=== PATIENT | male | born 2000 ===

== ENCOUNTER 2025-01-04 05:10 | Inpatient (IN) | payer MEDICAID, OTHER, SELFPAY ==
[2025-01-04 05:25] VITALS: BP 126/84; PULSE 99; RESP 15; TEMP 36.6; O2SAT 96
[2025-01-04 05:49] VITALS: BMI 43.7
--- NOTE | 2025-01-04 06:40 | PC.ADMIT ---
PT IS A 24 YEAR OLD, DANISH SPEAKING MALE ADMITTED TO [facility] AT APPROXIMATELY 0545 FROM [employer] [facility] FOR THE FEEBLE-MINDED ON A CONDITIONAL VOLUNTARY. PT WAS PLACED ON 15 MIN CHECKS. COOPERATIVE WITH SKIN/SAFETY CHECK WHICH WAS UNREMARKABLE. PT PRESENTED TO THE ED DUE TO INCREASED DELUSIONS. PTS SISTER REPORTS PT HAS BEEN OFF HIS MEDICATIONS FOR A FEW DAYS. PT REPORTS FEELING LIKE EVERYTHING IS A HUMAN . PT IS ABLE TO RECOGNIZE THAT THIS THOUGHT PROCESS IS DELUSIONAL BUT EXPRESSES NOT KNOWING HOW TO MAKE THESE FEELINGS SUBSIDE. HE REPORTS THAT HIS DELUSIONAL THINKING HAS INTERFERED WITH HIS LIFE CAUSING POOR APPETITE, POOR SLEEP, POOR ADLS, AND PARANOIA. PT REPORTS INTERMITTENT THOUGHTS OF SI BUT DOES NOT EXPRESS A PLAN OR INTENT. PT REPORTS MILD DEPRESSION AND MODERATE ANXIETY. PT REPORT HAVING [facility] SERVICES. PT DID NOT SIGN ANY RELEASES OF INFORMATION AT THIS TIME. PT HAS A POSITIVE FAMILY SUPPORT SYSTEM. HE REPORTS FEELING SAFE ON THE UNIT. NO ACUTE MEDICAL CONCERNS AT THIS TIME. PT NEEDS SAFETY TOOL COMPLETED.
[2025-01-04 07:55] VITALS: BP 120/76; PULSE 103; RESP 16; TEMP 36.1; O2SAT 98
--- NOTE | 2025-01-04 08:19 | HO.PM.IMCN ---
History of Present Illness Data of Consult Service Date: 01/04/25 Primary Care Provider: Unknown Physician HPI Reason for consult: Admission H&P Pt is a 24-year-old male with a PMH significant for?HTN, HLD, and mood disorder who is admitted to [facility] psychiatry unit for increasing paranoia, depression, and SI with plan to possibly jump in front of a train. Pt also reported having a difficult time eating because no matter what food he was ingesting he always felt like he was eating human flesh. Medical consult for admission H&P. Pt seen and examined on the unit. Pt reports follows regularly with a PCP, though has been inconsistent with his home medications. Denies any acute medical complaints at this time. No chest pain/pressure, palpitations. Denies shortness or breath or difficulty breathing. No fever, chills, nausea, vomiting, abdominal pain. Denies headache or acute vision loss. Labs from [facility] reviewed, significant for leukocytosis of 12.8 and increased anion gap of 17 otherwise unremarkable. Vitals on the unit show mild tachycardia of 103, otherwise stable and WNL. Review of Systems Review of Systems: Pt denies any acute medical complaints at this time. [facility] Social History Household Members: Family Housing: Unknown / Unable to assess Do you presently have visiting nurse or other home services: No Patient Tobacco Use Status: Never used Tobacco Smoked in Last 30 Days: No e-Cigarette/Vaping Use: Never Used Patient Interested in Nicotine Replacement: No Patient Given Instructions on How to Stop Smoking: No Second Hand Smoke Exposure: No Have you been hit, kicked, punched, or otherwise hurt by someone within the past year? If so, by whom?: No Do you feel safe in your current relationship?: No Current Relationship Is there a partner from a previous relationship who is making you feel unsafe now?: No Are you made to feel afraid or neglected: No Advance Directives: No Advance Directives Information Provided: Yes Do you have a plan to hurt others: No Plan Recently lost weight without trying: No Eating poorly because of decreased appetite: No Nutrition Risks: No Nutritional Risk Poor oral hygiene: No Meds Allergies Allergy/AdvReac Type Severity Reaction Status Date / Time No Known Allergies Allergy Verified 01/04/25 05:57 Active Medications: Current Medications Acetaminophen (Acetaminophen 325 Mg Tablet) 650 mg PO Q6H PRN PRN Reason: Headache/Pain, Scale 1-10 Al Hydroxide/Mg Hydroxide (Magnesium Hydrox/Alum Hydrox 30 Ml Oral.Susp) 30 ml PO Q6H PRN PRN Reason: Heartburn/Nausea Hydroxyzine HCl (Hydroxyzine Hcl 25 Mg Tablet) 25 mg PO Q6H PRN PRN Reason: mild anxiety Magnesium Hydroxide (Milk Of Magnesia 30 Ml Oral.Susp) 30 ml PO DAILY PRN PRN Reason: Constipation Nicotine Polacrilex (Nicotine Polacrilex 2 Mg Gum) 4 mg BUCCAL Q2H PRN PRN Reason: Nicotine Cravings Olanzapine (Olanzapine Odt 10 Mg Tab.Rapdis) 10 mg TRANSLINGU Q6H PRN PRN Reason: agitation Quetiapine Fumarate (Quetiapine Fumarate 100 Mg Tablet) 100 mg PO BEDTIME YOSHI Trazodone HCl (Trazodone Hcl 50 Mg Tablet) 50 mg PO BEDTIME MRX1 PRN PRN Reason: Insomnia Home Medications ?Medication ?Instructions ?Recorded ?Confirmed ?Last Taken ?Type benztropine 1 mg tablet 1 mg PO BID 01/04/25 01/04/25 01/03/25 19:37 History melatonin 3 mg tablet 3 mg PO BEDTIME PRN Sleep 01/04/25 01/04/25 Unknown History mirtazapine 7.5 mg tablet 7.5 mg PO BEDTIME 01/04/25 01/04/25 Unknown History paliperidone palmitate 234 mg/1.5 234 mg IM Q28D 01/04/25 01/04/25 12/15/24 History mL intramuscular syringe (Invega Sustenna) propranolol 20 mg tablet 20 mg PO TID 01/04/25 01/04/25 Unknown History quetiapine 100 mg tablet (Seroquel) 400 mg PO BEDTIME 01/04/25 01/04/25 Unknown History quetiapine 300 mg tablet (Seroquel) 300 mg PO BEDTIME 01/04/25 01/04/25 Unknown History quetiapine 50 mg tablet (Seroquel) 50 mg PO DAILY PRN Anxiety 01/04/25 01/04/25 Unknown History sertraline 100 mg tablet 100 mg PO DAILY 01/04/25 01/04/25 Unknown History simvastatin 20 mg tablet 20 mg PO BEDTIME 01/04/25 01/04/25 01/03/25 19:37 History Physical Exam Vital Signs and Narrative: Vital Signs: Last Vital Signs Temp 96.9 F 01/04/25 07:55 Pulse 103 H 01/04/25 07:55 Resp 16 01/04/25 07:55 BP 120/76 01/04/25 07:55 Pulse Ox 98 01/04/25 07:55 BMI result Body Mass Index 43.7 General: AOx3, no acute distress Resp: CTA bilaterally CVS: S1, S2, RRR GI: +BS, NT, no distention Skin: Warm, dry Neuro: Cranial nerves II-XII grossly intact bilaterally. Motor grossly intact bilaterally Extremities: No edema Psych: Appropriate affect Assessment and Plan (1) Medical clearance for psychiatric admission: Status: Acute Plan Pt is a 24-year-old male with a PMH significant for?HTN, HLD, and mood disorder who is admitted to [facility] psychiatry unit for increasing paranoia, depression, and SI with plan to possibly jump in front of a train. Pt also reported having a difficult time eating because no matter what food he was ingesting he always felt like he was eating human flesh. Medical consult for admission H&P. Mood disorder Plan as per Psychiatry HTN Well-controlled on current therapies Continue propranolol HLD Continue statin Pt otherwise has no acute medical complaints or chronic medical conditions. Will sign off for now. Thank you for allowing us to take care in the care of this pt. Will sign off for now. Please re-consult if any acute issue or need arises.
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
[2025-01-04] MEDS: Nicotine Polacrilex 2 MG GUM 4 MG BUCCAL ×2 (11:52→20:48)
[2025-01-04] MEDS: Sertraline HCL 25 MG TABLET 125 MG PO (11:53)
[2025-01-04 20:00] VITALS: BP 118/64; PULSE 120; TEMP 36.9; O2SAT 96
[2025-01-04] MEDS: QUEtiapine Fumarate 300 MG TABLET PO (20:48)
[2025-01-04] MEDS: QUEtiapine Fumarate 100 MG TABLET PO (20:48)
[2025-01-04] MEDS: Atorvastatin Calcium 10 MG TABLET PO (20:48)
[2025-01-04] MEDS: Benztropine Mesylate 1 MG TABLET PO (20:48)
[2025-01-05 08:51] LABS: Estimated Average Glucose 123 mg/dL; Hemoglobin A1C 160.8765 umol/L; Hemoglobin A1c % 5.9 % (<6.0); Total Hemoglobin (HGBA1C) 3883.0903 umol/L
[2025-01-05 09:07] LABS: Alanine Aminotransferase 47 U/L (0-40); Albumin Level 4.7 g/dL (3.5-5.0); Alkaline Phosphatase 99 U/L (39-117); Anion Gap 16 (12-20); Aspartate Amino Transferase 23 U/L (5-37); Bilirubin Total 0.4 mg/dL (0.0-1.0); Blood Urea Nitrogen 13 mg/dL (9-16); Carbon Dioxide 24 mmol/L (22-29); Chloride 103 mmol/L (96-108); Cholesterol 152 mg/dL (<200); Creatinine Clr Calc Pharmacy 163.9; Estimated Glomerular Filt Rate > 60; Glucose Random 109 mg/dL (60-115); HDL Cholesterol 37 mg/dL (>40); LDL Cholesterol Calculated 79 mg/dL (<100); Potassium 4.2 mmol/L (3.3-5.1); Sodium 139 mmol/L (135-145); Total Protein 7.6 g/dL (6.5-8.0); Triglycerides 181 mg/dL (<150)
[2025-01-05] MEDS: Benztropine Mesylate 1 MG TABLET PO ×2 (09:10→21:06)
[2025-01-05] MEDS: Sertraline HCL 50 MG TABLET 150 MG PO (09:10)
[2025-01-05] MEDS: Nicotine Polacrilex 2 MG GUM 4 MG BUCCAL ×4 (09:11→20:23)
[2025-01-05 09:29] LABS: Folate 11.3 ng/mL (> or = 4.0); Vitamin B12 418 pg/mL (200-900)
[2025-01-05] MEDS: hydrOXYzine HCL 25 MG TABLET PO (18:49)
[2025-01-05] MEDS: OLANZapine ODT 10 MG TAB.RAPDIS TRANSLINGU (18:49)
[2025-01-05 20:00] VITALS: BP 177/99; PULSE 128; RESP 16; TEMP 36.2; O2SAT 97
--- NOTE | 2025-01-05 20:29 | HO.PSYCHPN ---
Subjective Subjective Date of Service: 01/05/25 Reason For Visit: F22 Delusional Disorder Interim History: Met with patient; discussed with team reports mood is better and SI fully resolved; tolerating increased Zoloft. still has intrusive thought of eating humans and fear people after him for it, though can use reality testing to calm his anxieties over it. Agrees to remain on current med regimen for now. Mental Status Exam Mental Status Exam Narrative: Pt is alert and oriented; behavior is cooperative, friendly and calm, internally preoccupied but less so; patient is not in distress; dressed in casual attire, unkempt, obese; mood is described as good and affect congruent, more calm; eye contact appropriate; Speech is with some thought blocking; a little slowed but normal volume and prosody; some psychomotor retardation present; thought process is with some thought blocking and can be distracted, but otherwise organized and goal directed; Thought content is on tx, paranoid ideations; intrusive, unwanted thoughts; No SI; no HI. Currently Denies AVH however at times appears internally preoccupied. Patients insight and judgment impaired but improving. Diagnostics Vital Signs (24Hr): BMI result Body Mass Index 43.7 Labs 01/05/25 08:26 Labs: Laboratory Results - last 48 hr 01/05/25 08:26 Sodium 139 Potassium 4.2 Chloride 103 Carbon Dioxide 24 Anion Gap 16 BUN 13 Creatinine 0.88 Estim Creat Clear Calc 163.9 Estimated GFR > 60 Random Glucose 109 Estimat Average Glucose 123 Hemoglobin A1c % 5.9 Calcium 10.0 Total Bilirubin 0.4 AST 23 ALT 47 H Alkaline Phosphatase 99 Total Protein 7.6 Albumin 4.7 Triglycerides 181 H Cholesterol 152 LDL Cholesterol, Calc 79 HDL Cholesterol 37 L Vitamin B12 418 Folate 11.3 TSH 1.70 Medications Medications Current Medications Acetaminophen (Acetaminophen 325 Mg Tablet) 650 mg PO Q6H PRN PRN Reason: Headache/Pain, Scale 1-10 Al Hydroxide/Mg Hydroxide (Magnesium Hydrox/Alum Hydrox 30 Ml Oral.Susp) 30 ml PO Q6H PRN PRN Reason: Heartburn/Nausea Atorvastatin Calcium (Atorvastatin Calcium 10 Mg Tablet) 10 mg PO BEDTIME [facility] Last Admin: 01/04/25 20:48 Dose: 10 mg Benztropine Mesylate (Benztropine Mesylate 1 Mg Tablet) 1 mg PO BID YOSHI Last Admin: 01/05/25 09:10 Dose: 1 mg Hydroxyzine HCl (Hydroxyzine Hcl 25 Mg Tablet) 25 mg PO Q6H PRN PRN Reason: mild anxiety Last Admin: 01/05/25 18:49 Dose: 25 mg Magnesium Hydroxide (Milk Of Magnesia 30 Ml Oral.Susp) 30 ml PO DAILY PRN PRN Reason: Constipation Melatonin (Melatonin 3 Mg Tablet) 3 mg PO BEDTIME PRN PRN Reason: Sleep Nicotine Polacrilex (Nicotine Polacrilex 2 Mg Gum) 4 mg BUCCAL Q2H PRN PRN Reason: Nicotine Cravings Last Admin: 01/05/25 20:23 Dose: 4 mg Olanzapine (Olanzapine Odt 10 Mg Tab.Rapdis) 10 mg TRANSLINGU Q6H PRN PRN Reason: agitation Last Admin: 01/05/25 18:49 Dose: 10 mg Paliperidone Palmitate (Paliperidone Palmitate 234 Mg/1.5 Ml Syringe) 234 mg IM Q28D YOSHI Quetiapine Fumarate (Quetiapine Fumarate 100 Mg Tablet) 100 mg PO BEDTIME YOSHI Last Admin: 01/04/25 20:48 Dose: 100 mg Quetiapine Fumarate (Quetiapine Fumarate 50 Mg Tablet) 50 mg PO DAILY PRN PRN Reason: Anxiety Quetiapine Fumarate (Quetiapine Fumarate 300 Mg Tablet) 300 mg PO BEDTIME YOSHI Last Admin: 01/04/25 20:48 Dose: 300 mg Sertraline HCl (Sertraline Hcl 50 Mg Tablet) 150 mg PO DAILY YOSHI Last Admin: 01/05/25 09:10 Dose: 150 mg Trazodone HCl (Trazodone Hcl 50 Mg Tablet) 50 mg PO BEDTIME MRX1 PRN PRN Reason: Insomnia Allergies Allergies Allergy/AdvReac Type Severity Reaction Status Date / Time No Known Allergies Allergy Verified 01/04/25 05:57 Assessment & Plan Assessment & Plan (1) Schizoaffective disorder, depressive type: Status: Acute Code(s): F25.1 - Schizoaffective disorder, depressive type Plan Pt is a 24 year old male with history of schizoaffective disorder depressed type, [facility] admission, hyperlipidemia who presents for suicidal ideation in the face of chronic psychotic symptoms. Patient reports that he has been depressed; about 2 months ago he was discharged from [facility] after 2 weeks stay and although depressed, up until last week, he was just Chillin... And remaining on medications (his sister reports been off for few days; patient acknowledges sometimes he stops them for a little while). Patient said that his depression worsened and he started having suicidal thoughts to hang himself. Patient says they are just thoughts, not voices, but he feels pressured to do it... He really does not want to but when it gets too much [he] calls the ambulance... Patient said that he was at the train tracks and had the thought to go in front of the train but I did not do it and called the ambulance... Patient also complains of the chronic, either delusional or intrusive, thought that when he is eating food, he is eating a human being; he says he knows it is not true, it is just my mind playing tricks.. But the thought/feeling brings with it paranoid ideations that people are after him because of his cannibalism so he gets scared. Patient denies any current AH but says he had in the past; says no SI right now... Smoked cannabis but denies other drug or alcohol abuse; denies history of manic type symptoms or behaviors; seems to endorse trauma history but is vague. Formulation/clinical reasoning: Patient cooperative. Presents with depression and is internally preoccupied though denies AH. Patient reports intrusive thoughts to hurt himself and that he is eating human beings when consuming food; he denies that these are voices and it is not clear if this is an intrusive thought or paranoid ideation. Patient on Invega Sustenna 234 mg which he received on 12/15; also on Seroquel 400 mg q.h.s.. Patient on Zoloft 100 mg. Because of his depression and what sounds like possibly OCD-like symptoms, will increase patient's Zoloft to 150 mg with which he agrees. Patient has ongoing paranoid ideations it is not clear if Seroquel is ineffective, too low a dose or if he has has not been taking it. Will reach out for collateral Hospital course: 01/05 stable; says depression and anxiety gone and no SI thoughts; still intrusive thought of eating humans -tolerating increased zoloft -continue for now; consider increasing or changing antipsychotic Plan: CV Q 15 minutes Increase Zoloft to 150 mg to address OCD like symptoms and depression Continue Seroquel 400 mg q.h.s. Continue Seroquel 50 mg daily p.r.n. Patient on Invega Sustenna 234 mg last dose 12/15/24 Continue simvastatin or equivalent Reach out for collateral Patient educated on: diagnosis and medication risk/benefits Informed Consent: understands Reason for continued inpatient stay Substantial Risk for: rapid decompensation Time Spent With Patient Time: Total time managing care of this patient today ____ minutes.
[2025-01-05] MEDS: QUEtiapine Fumarate 100 MG TABLET PO (21:06)
[2025-01-05] MEDS: Atorvastatin Calcium 10 MG TABLET PO (21:06)
[2025-01-05] MEDS: QUEtiapine Fumarate 300 MG TABLET PO (21:06)
[2025-01-06 08:00] VITALS: BP 113/74; PULSE 70; TEMP 36.1; O2SAT 98
[2025-01-06] MEDS: Benztropine Mesylate 1 MG TABLET PO ×2 (08:33→20:47)
[2025-01-06] MEDS: Sertraline HCL 50 MG TABLET 150 MG PO (08:33)
--- NOTE | 2025-01-06 10:27 | P.PNPSI_ITS ---
Subjective Subjective Date of Service: 01/06/25 Reason For Visit: F22 Delusional Disorder Subjective Notes: Conditional Voluntary Interim History: Patient was seen and discussed in rounds today. Records and plans were reviewed. He has been stable, blunted and guarded. Attending groups. Continues to have delusions. Blood pressure was slightly elevated but refused to have it rechecked. Eating and sleeping well. No changes were made today Review of Systems Review of Systems Yes all other systems are reviewed and are negative Mental Status Exam Mental Status Exam Narrative: He is alert, pleasant and cooperative. Normal speech. Little eye contact. Affect is appropriate and subdued. No active SI. No signs of psychosis. Cognitively has slowed thought processes. Judgment is intact. Diagnostics Vital Signs (24Hr): Vital Signs - 24 hr 01/05/25 20:00 01/06/25 08:00 Temperature 97.1 F 96.9 F Pulse Rate 128 H 70 Respiratory Rate 16 Blood Pressure 177/99 H 113/74 Pulse Oximetry 97 98 Oxygen Delivery Method Room Air Room Air BMI result Body Mass Index 43.7 Labs 01/05/25 08:26 Labs: Laboratory Results - last 48 hr 01/05/25 08:26 Sodium 139 Potassium 4.2 Chloride 103 Carbon Dioxide 24 Anion Gap 16 BUN 13 Creatinine 0.88 Estim Creat Clear Calc 163.9 Estimated GFR > 60 Random Glucose 109 Estimat Average Glucose 123 Hemoglobin A1c % 5.9 Calcium 10.0 Total Bilirubin 0.4 AST 23 ALT 47 H Alkaline Phosphatase 99 Total Protein 7.6 Albumin 4.7 Triglycerides 181 H Cholesterol 152 LDL Cholesterol, Calc 79 HDL Cholesterol 37 L Vitamin B12 418 Folate 11.3 TSH 1.70 Medications Medications Current Medications Acetaminophen (Acetaminophen 325 Mg Tablet) 650 mg PO Q6H PRN PRN Reason: Headache/Pain, Scale 1-10 Al Hydroxide/Mg Hydroxide (Magnesium Hydrox/Alum Hydrox 30 Ml Oral.Susp) 30 ml PO Q6H PRN PRN Reason: Heartburn/Nausea Atorvastatin Calcium (Atorvastatin Calcium 10 Mg Tablet) 10 mg PO BEDTIME YOS[facility] Last Admin: 01/05/25 21:06 Dose: 10 mg Benztropine Mesylate (Benztropine Mesylate 1 Mg Tablet) 1 mg PO BID YOSHI Last Admin: 01/06/25 08:33 Dose: 1 mg Hydroxyzine HCl (Hydroxyzine Hcl 25 Mg Tablet) 25 mg PO Q6H PRN PRN Reason: mild anxiety Last Admin: 01/05/25 18:49 Dose: 25 mg Ibuprofen (Ibuprofen 600 Mg Tablet) 600 mg PO Q6H PRN PRN Reason: Pain, Moderate(Pain Scale 4-6) Magnesium Hydroxide (Milk Of Magnesia 30 Ml Oral.Susp) 30 ml PO DAILY PRN PRN Reason: Constipation Melatonin (Melatonin 3 Mg Tablet) 3 mg PO BEDTIME PRN PRN Reason: Sleep Nicotine Polacrilex (Nicotine Polacrilex 2 Mg Gum) 4 mg BUCCAL Q2H PRN PRN Reason: Nicotine Cravings Last Admin: 01/05/25 20:23 Dose: 4 mg Olanzapine (Olanzapine Odt 10 Mg Tab.Rapdis) 10 mg TRANSLINGU Q6H PRN PRN Reason: agitation Last Admin: 01/05/25 18:49 Dose: 10 mg Paliperidone Palmitate (Paliperidone Palmitate 234 Mg/1.5 Ml Syringe) 234 mg IM Q28D YOSHI Quetiapine Fumarate (Quetiapine Fumarate 100 Mg Tablet) 100 mg PO BEDTIME YOSHI Last Admin: 01/05/25 21:06 Dose: 100 mg Quetiapine Fumarate (Quetiapine Fumarate 50 Mg Tablet) 50 mg PO DAILY PRN PRN Reason: Anxiety Quetiapine Fumarate (Quetiapine Fumarate 300 Mg Tablet) 300 mg PO BEDTIME YOSHI Last Admin: 01/05/25 21:06 Dose: 300 mg Sertraline HCl (Sertraline Hcl 50 Mg Tablet) 150 mg PO DAILY YOSHI Last Admin: 01/06/25 08:33 Dose: 150 mg Trazodone HCl (Trazodone Hcl 50 Mg Tablet) 50 mg PO BEDTIME MRX1 PRN PRN Reason: Insomnia Allergies Allergies Allergy/AdvReac Type Severity Reaction Status Date / Time No Known Allergies Allergy Verified 01/04/25 05:57 Assessment & Plan Assessment & Plan (1) Schizoaffective disorder, depressive type: Status: Acute Code(s): F25.1 - Schizoaffective disorder, depressive type Plan Pt is a 24 year old male with history of schizoaffective disorder depressed type, [facility] admission, hyperlipidemia who presents for suicidal ideation in the face of chronic psychotic symptoms. Patient reports that he has been depressed; about 2 months ago he was discharged from [facility] after 2 weeks stay and although depressed, up until last week, he was just Chillin... And remaining on medications (his sister reports been off for few days; patient acknowledges sometimes he stops them for a little while). Patient said that his depression worsened and he started having suicidal thoughts to hang himself. Patient says they are just thoughts, not voices, but he feels pressured to do it... He really does not want to but when it gets too much [he] calls the ambulance... Patient said that he was at the train tracks and had the thought to go in front of the train but I did not do it and called the ambulance... Patient also complains of the chronic, either delusional or intrusive, thought that when he is eating food, he is eating a human being; he says he knows it is not true, it is just my mind playing tricks.. But the thought/feeling brings with it paranoid ideations that people are after him because of his cannibalism so he gets scared. Patient denies any current AH but says he had in the past; says no SI right now... Smoked cannabis but denies other drug or alcohol abuse; denies history of manic type symptoms or behaviors; seems to endorse trauma history but is vague. Formulation/clinical reasoning: Patient cooperative. Presents with depression and is internally preoccupied though denies AH. Patient reports intrusive thoughts to hurt himself and that he is eating human beings when consuming food; he denies that these are voices and it is not clear if this is an intrusive thought or paranoid ideation. Patient on Invega Sustenna 234 mg which he received on 12/15; also on Seroquel 400 mg q.h.s.. Patient on Zoloft 100 mg. Because of his depression and what sounds like possibly OCD-like symptoms, will increase patient's Zoloft to 150 mg with which he agrees. Patient has ongoing paranoid ideations it is not clear if Seroquel is ineffective, too low a dose or if he has has not been taking it. Will reach out for collateral Plan: CV Q 15 minutes Increase Zoloft to 150 mg to address OCD like symptoms and depression Continue Seroquel 400 mg q.h.s. Continue Seroquel 50 mg daily p.r.n. Patient on Invega Sustenna 234 mg last dose 12/15/24 Continue simvastatin or equivalent Reach out for collateral 01/06: Continue current regimen and plans. Reason for continued inpatient stay Substantial Risk for: med/psych decompensation Time Spent With Patient Time: Total time managing care of this patient today ____ minutes.
[2025-01-06] MEDS: Nicotine Polacrilex 2 MG GUM 4 MG BUCCAL ×2 (18:13→21:15)
[2025-01-06] MEDS: OLANZapine ODT 10 MG TAB.RAPDIS TRANSLINGU (18:13)
[2025-01-06 19:39] VITALS: BP 116/82; PULSE 118; RESP 16; TEMP 36.6; O2SAT 97
[2025-01-06] MEDS: traZODone HCL 50 MG TABLET PO (20:47)
[2025-01-06] MEDS: QUEtiapine Fumarate 300 MG TABLET PO (20:47)
[2025-01-06] MEDS: Atorvastatin Calcium 10 MG TABLET PO (20:47)
[2025-01-06] MEDS: QUEtiapine Fumarate 100 MG TABLET PO (20:48)
[2025-01-07 08:00] VITALS: BP 122/66; PULSE 112; TEMP 36.9; O2SAT 95
[2025-01-07] MEDS: Sertraline HCL 50 MG TABLET 150 MG PO (08:49)
[2025-01-07] MEDS: Benztropine Mesylate 1 MG TABLET PO ×2 (08:49→20:53)
[2025-01-07] MEDS: OLANZapine ODT 10 MG TAB.RAPDIS TRANSLINGU ×2 (09:02→20:53)
--- NOTE | 2025-01-07 09:34 | P.PNPSI_ITS ---
Subjective Subjective Date of Service: 01/07/25 Reason For Visit: F22 Delusional Disorder Subjective Notes: Conditional Voluntary Interim History: Patient was seen and discussed in rounds today. Records and plans were reviewed. He he is doing fairly well and has been mostly isolative and attending no groups. Is not as interactive. Denies depression and anxiety. No SI. Eating and sleeping adequately. No changes were made today Review of Systems Review of Systems Yes all other systems are reviewed and are negative Mental Status Exam Mental Status Exam Narrative: He is alert, pleasant and cooperative. Normal speech. Little eye contact. Affect is appropriate and subdued. No active SI. No signs of psychosis. Cognitively has slowed thought processes. Judgment is intact. Diagnostics Vital Signs (24Hr): Vital Signs - 24 hr 01/06/25 19:39 Temperature 97.8 F Pulse Rate 118 H Respiratory Rate 16 Blood Pressure 116/82 Pulse Oximetry 97 Oxygen Delivery Method Room Air BMI result Body Mass Index 43.7 Labs 01/05/25 08:26 Medications Medications Current Medications Acetaminophen (Acetaminophen 325 Mg Tablet) 650 mg PO Q6H PRN PRN Reason: Headache/Pain, Scale 1-10 Al Hydroxide/Mg Hydroxide (Magnesium Hydrox/Alum Hydrox 30 Ml Oral.Susp) 30 ml PO Q6H PRN PRN Reason: Heartburn/Nausea Atorvastatin Calcium (Atorvastatin Calcium 10 Mg Tablet) 10 mg PO BEDTIME [facility] Last Admin: 01/06/25 20:47 Dose: 10 mg Benztropine Mesylate (Benztropine Mesylate 1 Mg Tablet) 1 mg PO BID [facility] Last Admin: 01/07/25 08:49 Dose: 1 mg Hydroxyzine HCl (Hydroxyzine Hcl 25 Mg Tablet) 25 mg PO Q6H PRN PRN Reason: mild anxiety Last Admin: 01/05/25 18:49 Dose: 25 mg Ibuprofen (Ibuprofen 600 Mg Tablet) 600 mg PO Q6H PRN PRN Reason: Pain, Moderate(Pain Scale 4-6) Magnesium Hydroxide (Milk Of Magnesia 30 Ml Oral.Susp) 30 ml PO DAILY PRN PRN Reason: Constipation Melatonin (Melatonin 3 Mg Tablet) 3 mg PO BEDTIME PRN PRN Reason: Sleep Nicotine Polacrilex (Nicotine Polacrilex 2 Mg Gum) 4 mg BUCCAL Q2H PRN PRN Reason: Nicotine Cravings Last Admin: 01/06/25 21:15 Dose: 4 mg Olanzapine (Olanzapine Odt 10 Mg Tab.Rapdis) 10 mg TRANSLINGU Q6H PRN PRN Reason: agitation Last Admin: 01/07/25 09:02 Dose: 10 mg Paliperidone Palmitate (Paliperidone Palmitate 234 Mg/1.5 Ml Syringe) 234 mg IM Q28D YOS[facility] Quetiapine Fumarate (Quetiapine Fumarate 100 Mg Tablet) 100 mg PO BEDTIME YOSHI Last Admin: 01/06/25 20:48 Dose: 100 mg Quetiapine Fumarate (Quetiapine Fumarate 50 Mg Tablet) 50 mg PO DAILY PRN PRN Reason: Anxiety Quetiapine Fumarate (Quetiapine Fumarate 300 Mg Tablet) 300 mg PO BEDTIME YOSHI Last Admin: 01/06/25 20:47 Dose: 300 mg Sertraline HCl (Sertraline Hcl 50 Mg Tablet) 150 mg PO DAILY YOSHI Last Admin: 01/07/25 08:49 Dose: 150 mg Trazodone HCl (Trazodone Hcl 50 Mg Tablet) 50 mg PO BEDTIME MRX1 PRN PRN Reason: Insomnia Last Admin: 01/06/25 20:47 Dose: 50 mg Allergies Allergies Allergy/AdvReac Type Severity Reaction Status Date / Time No Known Allergies Allergy Verified 01/04/25 05:57 Assessment & Plan Assessment & Plan (1) Schizoaffective disorder, depressive type: Status: Acute Code(s): F25.1 - Schizoaffective disorder, depressive type Plan Pt is a 24 year old male with history of schizoaffective disorder depressed type, [facility] admission, hyperlipidemia who presents for suicidal ideation in the face of chronic psychotic symptoms. Patient reports that he has been depressed; about 2 months ago he was discharged from [facility] after 2 weeks stay and although depressed, up until last week, he was just Chillin... And remaining on medications (his sister reports been off for few days; patient acknowledges sometimes he stops them for a little while). Patient said that his depression worsened and he started having suicidal thoughts to hang himself. Patient says they are just thoughts, not voices, but he feels pressured to do it... He really does not want to but when it gets too much [he] calls the ambulance... Patient said that he was at the train tracks and had the thought to go in front of the train but I did not do it and called the ambulance... Patient also complains of the chronic, either delusional or intrusive, thought that when he is eating food, he is eating a human being; he says he knows it is not true, it is just my mind playing tricks.. But the thought/feeling brings with it paranoid ideations that people are after him because of his cannibalism so he gets scared. Patient denies any current AH but says he had in the past; says no SI right now... Smoked cannabis but denies other drug or alcohol abuse; denies history of manic type symptoms or behaviors; seems to endorse trauma history but is vague. Formulation/clinical reasoning: Patient cooperative. Presents with depression and is internally preoccupied though denies AH. Patient reports intrusive thoughts to hurt himself and that he is eating human beings when consuming food; he denies that these are voices and it is not clear if this is an intrusive thought or paranoid ideation. Patient on Invega Sustenna 234 mg which he received on 12/15; also on Seroquel 400 mg q.h.s.. Patient on Zoloft 100 mg. Because of his depression and what sounds like possibly OCD-like symptoms, will increase patient's Zoloft to 150 mg with which he agrees. Patient has ongoing paranoid ideations it is not clear if Seroquel is ineffective, too low a dose or if he has has not been taking it. Will reach out for collateral Hospital course: 01/05 stable; says depression and anxiety gone and no SI thoughts; still intrusive thought of eating humans -tolerating increased zoloft -continue for now; consider increasing or changing antipsychotic Plan: CV Q 15 minutes Increase Zoloft to 150 mg to address OCD like symptoms and depression Continue Seroquel 400 mg q.h.s. Continue Seroquel 50 mg daily p.r.n. Patient on Invega Sustenna 234 mg last dose 12/15/24 Continue simvastatin or equivalent Reach out for collateral 01/07: Continue current regimen and plans. Reason for continued inpatient stay Substantial Risk for: med/psych decompensation Time Spent With Patient Time: Total time managing care of this patient today ____ minutes.
[2025-01-07] MEDS: Nicotine Polacrilex 2 MG GUM 4 MG BUCCAL ×3 (14:12→20:53)
[2025-01-07] MEDS: Ibuprofen 600 MG TABLET PO ×2 (15:50→21:00)
[2025-01-07 20:00] VITALS: BP 135/79; PULSE 120; RESP 15; TEMP 36.3; O2SAT 96
[2025-01-07] MEDS: Atorvastatin Calcium 10 MG TABLET PO (20:53)
[2025-01-07] MEDS: QUEtiapine Fumarate 300 MG TABLET PO (20:53)
[2025-01-07] MEDS: QUEtiapine Fumarate 100 MG TABLET PO (20:53)
[2025-01-07] MEDS: Melatonin 3 MG TABLET PO (20:53)
[2025-01-08 08:00] VITALS: BP 135/73; PULSE 94; RESP 18; TEMP 36.8; O2SAT 99
[2025-01-08] MEDS: Sertraline HCL 50 MG TABLET 150 MG PO (08:45)
[2025-01-08] MEDS: Benztropine Mesylate 1 MG TABLET PO ×2 (08:45→20:54)
[2025-01-08] MEDS: Nicotine Polacrilex 2 MG GUM 4 MG BUCCAL ×4 (09:20→19:42)
[2025-01-08] MEDS: OLANZapine ODT 10 MG TAB.RAPDIS TRANSLINGU (14:56)
[2025-01-08] MEDS: Acetaminophen 325 MG TABLET 650 MG PO (14:56)
--- NOTE | 2025-01-08 16:02 | HO.PSYCHPN ---
Subjective Subjective Date of Service: 01/08/25 Reason For Visit: F22 Delusional Disorder Interim History: met with patient; discussed with team pt reports good mood; no SI. Still with intrusive thought that he's engaged in cannibalism and that people will be after him for it, though he says he can talk himself out of it. Discussed medications he does not want to change medications but agrees to increase Seroquel to see if this will help; c/o restless leg and agrees to pramipexole. He also agrees to stop prn zyprexa since this make him on 3 antipsychotics. He says overall, despite this intrusive thought, he's learned to live with it and it's not too bothersome. Discussed wt gain and metformin but pt does not want to start. He asks about discharge. Mental Status Exam Mental Status Exam Narrative: Pt is alert and oriented; behavior is cooperative, friendly and calm, social in milue; patient is not in distress; dressed in casual attire, unkempt, obese; mood is described as good and affect congruent, more calm; eye contact appropriate; Speech is normal rate, volume, prosody; no longer with some thought blocking;no psychomotor retardation present; thought process goal oriented and organized; Thought content is on tx, discharge; also on paranoid ideations but more able to dismiss; No SI; no HI. Currently Denies AVH and does note appear internally preoccupied. Patients insight and judgment impaired but much improved, adequate and likely at baseline. Diagnostics Vital Signs (24Hr): Vital Signs - 24 hr 01/07/25 20:00 01/08/25 08:00 Temperature 97.4 F 98.3 F Pulse Rate 120 H 94 Respiratory Rate 15 18 Blood Pressure 135/79 135/73 Pulse Oximetry 96 99 Oxygen Delivery Method Room Air BMI result Body Mass Index 43.7 Labs 01/05/25 08:26 Medications Medications Current Medications Acetaminophen (Acetaminophen 325 Mg Tablet) 650 mg PO Q6H PRN PRN Reason: Headache/Pain, Scale 1-10 Last Admin: 01/08/25 14:56 Dose: 650 mg Al Hydroxide/Mg Hydroxide (Magnesium Hydrox/Alum Hydrox 30 Ml Oral.Susp) 30 ml PO Q6H PRN PRN Reason: Heartburn/Nausea Atorvastatin Calcium (Atorvastatin Calcium 10 Mg Tablet) 10 mg PO BEDTIME YOSHI Last Admin: 01/07/25 20:53 Dose: 10 mg Benztropine Mesylate (Benztropine Mesylate 1 Mg Tablet) 1 mg PO BID YOSHI Last Admin: 01/08/25 08:45 Dose: 1 mg Hydroxyzine HCl (Hydroxyzine Hcl 25 Mg Tablet) 25 mg PO Q6H PRN PRN Reason: mild anxiety Last Admin: 01/05/25 18:49 Dose: 25 mg Ibuprofen (Ibuprofen 600 Mg Tablet) 600 mg PO Q6H PRN PRN Reason: Pain, Moderate(Pain Scale 4-6) Last Admin: 01/07/25 21:00 Dose: 600 mg Magnesium Hydroxide (Milk Of Magnesia 30 Ml Oral.Susp) 30 ml PO DAILY PRN PRN Reason: Constipation Melatonin (Melatonin 3 Mg Tablet) 3 mg PO BEDTIME PRN PRN Reason: Sleep Last Admin: 01/07/25 20:53 Dose: 3 mg Nicotine Polacrilex (Nicotine Polacrilex 2 Mg Gum) 4 mg BUCCAL Q2H PRN PRN Reason: Nicotine Cravings Last Admin: 01/08/25 14:56 Dose: 4 mg Paliperidone Palmitate (Paliperidone Palmitate 234 Mg/1.5 Ml Syringe) 234 mg IM Q28D [facility]OS[facility] Pramipexole Dihydrochloride (Pramipexole Di-Hcl 0.125 Mg Tablet) 0.125 mg PO BEDTIME [facility] Quetiapine Fumarate (Quetiapine Fumarate 50 Mg Tablet) 50 mg PO DAILY PRN PRN Reason: Anxiety Quetiapine Fumarate (Quetiapine Fumarate 300 Mg Tablet) 300 mg PO BEDTIME YOSHI Last Admin: 01/07/25 20:53 Dose: 300 mg Quetiapine Fumarate (Quetiapine Fumarate 200 Mg Tablet) 200 mg PO BEDTIME YOS[facility] Sertraline HCl (Sertraline Hcl 50 Mg Tablet) 150 mg PO DAILY YOSHI Last Admin: 01/08/25 08:45 Dose: 150 mg Trazodone HCl (Trazodone Hcl 50 Mg Tablet) 50 mg PO BEDTIME MRX1 PRN PRN Reason: Insomnia Last Admin: 01/06/25 20:47 Dose: 50 mg Allergies Allergies Allergy/AdvReac Type Severity Reaction Status Date / Time No Known Allergies Allergy Verified 01/04/25 05:57 Assessment & Plan Assessment & Plan (1) Schizoaffective disorder, depressive type: Status: Acute Code(s): F25.1 - Schizoaffective disorder, depressive type Plan Pt is a 24 year old male with history of schizoaffective disorder depressed type, [facility] admission, hyperlipidemia who presents for suicidal ideation in the face of chronic psychotic symptoms. Patient reports that he has been depressed; about 2 months ago he was discharged from [facility] after 2 weeks stay and although depressed, up until last week, he was just Chillin... And remaining on medications (his sister reports been off for few days; patient acknowledges sometimes he stops them for a little while). Patient said that his depression worsened and he started having suicidal thoughts to hang himself. Patient says they are just thoughts, not voices, but he feels pressured to do it... He really does not want to but when it gets too much [he] calls the ambulance... Patient said that he was at the train tracks and had the thought to go in front of the train but I did not do it and called the ambulance... Patient also complains of the chronic, either delusional or intrusive, thought that when he is eating food, he is eating a human being; he says he knows it is not true, it is just my mind playing tricks.. But the thought/feeling brings with it paranoid ideations that people are after him because of his cannibalism so he gets scared. Patient denies any current AH but says he had in the past; says no SI right now... Smoked cannabis but denies other drug or alcohol abuse; denies history of manic type symptoms or behaviors; seems to endorse trauma history but is vague. Formulation/clinical reasoning: Patient cooperative. Presents with depression and is internally preoccupied though denies AH. Patient reports intrusive thoughts to hurt himself and that he is eating human beings when consuming food; he denies that these are voices and it is not clear if this is an intrusive thought or paranoid ideation. Patient on Invega Sustenna 234 mg which he received on 12/15; also on Seroquel 400 mg q.h.s.. Patient on Zoloft 100 mg. Because of his depression and what sounds like possibly OCD-like symptoms, will increase patient's Zoloft to 150 mg with which he agrees. Patient has ongoing paranoid ideations it is not clear if Seroquel is ineffective, too low a dose or if he has has not been taking it. Will reach out for collateral Hospital course: 01/05 stable; says depression and anxiety gone and no SI thoughts; still intrusive thought of eating humans -tolerating increased zoloft -continue for now; consider increasing or changing antipsychotic 01/08 pt reports good mood; no SI. Still with intrusive thought that he's engaged in cannibalism and that people will be after him for it, though he says he can talk himself out of it. Discussed medications he does not want to change medications but agrees to increase Seroquel to see if this will help; c/o restless leg and agrees to pramipexole. He also agrees to stop prn zyprexa since this make him on 3 antipsychotics. He says overall, despite this intrusive thought, he's learned to live with it and it's not too bothersome. Discussed wt gain and metformin but pt does not want to start. He asks about discharge. -remains in good behavioral/impulse control Plan: CV Q 15 minutes add pramipexole for restless leg qhs dc zyprexa prn Increased Zoloft to 150 mg to address OCD like symptoms and depression InCRease to Seroquel 500 mg q.h.s. Continue Seroquel 50 mg daily p.r.n. Patient on Invega Sustenna 234 mg last dose 12/15/24 Continue simvastatin or equivalent Reach out for collateral Patient educated on: diagnosis and medication risk/benefits Informed Consent: understands Reason for continued inpatient stay Substantial Risk for: stable for discharge Time Spent With Patient Time: Total time managing care of this patient today ____ minutes.
[2025-01-08] MEDS: hydrOXYzine HCL 25 MG TABLET PO (19:42)
[2025-01-08 20:00] VITALS: BP 170/73; PULSE 124; O2SAT 98
[2025-01-08] MEDS: QUEtiapine Fumarate 300 MG TABLET PO (20:54)
[2025-01-08] MEDS: Atorvastatin Calcium 10 MG TABLET PO (20:54)
[2025-01-08] MEDS: Pramipexole Di-HCL 0.125 MG TABLET PO (20:54)
[2025-01-08] MEDS: QUEtiapine Fumarate 200 MG TABLET PO (20:55)
[2025-01-08] MEDS: traZODone HCL 50 MG TABLET PO (20:55)
[2025-01-09 08:00] VITALS: BP 120/74; PULSE 93; RESP 18; TEMP 36.8; O2SAT 95
[2025-01-09] MEDS: Benztropine Mesylate 1 MG TABLET PO ×2 (09:11→20:53)
[2025-01-09] MEDS: Sertraline HCL 50 MG TABLET 150 MG PO (09:11)
[2025-01-09] MEDS: Ibuprofen 600 MG TABLET PO (09:49)
[2025-01-09] MEDS: Nicotine Polacrilex 2 MG GUM 4 MG BUCCAL ×3 (09:49→22:34)
[2025-01-09] MEDS: hydrOXYzine HCL 25 MG TABLET PO ×2 (14:12→20:53)
[2025-01-09] MEDS: QUEtiapine Fumarate 50 MG TABLET PO (19:32)
[2025-01-09 19:51] VITALS: BP 171/82; PULSE 114; TEMP 36.4; O2SAT 98
[2025-01-09] MEDS: traZODone HCL 50 MG TABLET PO (20:53)
[2025-01-09] MEDS: Atorvastatin Calcium 10 MG TABLET PO (20:53)
[2025-01-09] MEDS: QUEtiapine Fumarate 300 MG TABLET PO (20:53)
[2025-01-09] MEDS: QUEtiapine Fumarate 200 MG TABLET PO (20:53)
[2025-01-09] MEDS: Pramipexole Di-HCL 0.125 MG TABLET PO (20:53)
[2025-01-09] MEDS: Melatonin 3 MG TABLET PO (20:53)
[2025-01-10 08:00] VITALS: BP 131/73; PULSE 83; TEMP 37.4; O2SAT 97
[2025-01-10] MEDS: Acetaminophen 325 MG TABLET 650 MG PO (08:20)
[2025-01-10] MEDS: Benztropine Mesylate 1 MG TABLET PO (08:20)
[2025-01-10] MEDS: Sertraline HCL 50 MG TABLET 150 MG PO (08:21)
[2025-01-10] MEDS: Nicotine Polacrilex 2 MG GUM 4 MG BUCCAL (08:22)
--- NOTE | 2025-01-10 09:59 | HO.PSYCHPN ---
Subjective Subjective Date of Service: 01/09/25 Reason For Visit: F22 Delusional Disorder Interim History: late entry note for patient seen on 01/09/25; discussed with team Patient reports he is doing well; no SI, no depression, no AH. Still with thoughts that he is eating humans but says it is low-level and not bothering; prefers increased Seroquel dose. Patient feels he is ready for discharge and ready to go home. Mental Status Exam Mental Status Exam Narrative: Pt is alert and oriented; behavior is cooperative, friendly and calm, social in milue; patient is not in distress; dressed in casual attire, unkempt, obese; mood is described as good and affect congruent, calm, brighter; eye contact appropriate; Speech is normal rate, volume, prosody; no longer with some thought blocking;no psychomotor retardation present; thought process goal oriented and organized; Thought content is on tx, discharge; also on paranoid ideations but more able to dismiss; No SI; no HI. Currently Denies AVH and does note appear internally preoccupied. Patients insight and judgment impaired but much improved, adequate and at baseline. Diagnostics Vital Signs (24Hr): Vital Signs - 24 hr 01/09/25 19:51 01/10/25 08:00 Temperature 97.5 F 99.3 F Pulse Rate 114 H 83 Blood Pressure 171/82 H 131/73 Pulse Oximetry 98 97 Oxygen Delivery Method Room Air Room Air BMI result Body Mass Index 43.7 Labs 01/05/25 08:26 Medications Medications Current Medications Acetaminophen (Acetaminophen 325 Mg Tablet) 650 mg PO Q6H PRN PRN Reason: Headache/Pain, Scale 1-10 Last Admin: 01/10/25 08:20 Dose: 650 mg Al Hydroxide/Mg Hydroxide (Magnesium Hydrox/Alum Hydrox 30 Ml Oral.Susp) 30 ml PO Q6H PRN PRN Reason: Heartburn/Nausea Atorvastatin Calcium (Atorvastatin Calcium 10 Mg Tablet) 10 mg PO BEDTIME YOSHI Last Admin: 01/09/25 20:53 Dose: 10 mg Benztropine Mesylate (Benztropine Mesylate 1 Mg Tablet) 1 mg PO BID YOSHI Last Admin: 01/10/25 08:20 Dose: 1 mg Hydroxyzine HCl (Hydroxyzine Hcl 25 Mg Tablet) 25 mg PO Q6H PRN PRN Reason: mild anxiety Last Admin: 01/09/25 20:53 Dose: 25 mg Ibuprofen (Ibuprofen 600 Mg Tablet) 600 mg PO Q6H PRN PRN Reason: Pain, Moderate(Pain Scale 4-6) Last Admin: 01/09/25 09:49 Dose: 600 mg Magnesium Hydroxide (Milk Of Magnesia 30 Ml Oral.Susp) 30 ml PO DAILY PRN PRN Reason: Constipation Melatonin (Melatonin 3 Mg Tablet) 3 mg PO BEDTIME PRN PRN Reason: Sleep Last Admin: 01/09/25 20:53 Dose: 3 mg Nicotine Polacrilex (Nicotine Polacrilex 2 Mg Gum) 4 mg BUCCAL Q2H PRN PRN Reason: Nicotine Cravings Last Admin: 01/10/25 08:22 Dose: 4 mg Paliperidone Palmitate (Paliperidone Palmitate 234 Mg/1.5 Ml Syringe) 234 mg IM Q28D YOSHI Pramipexole Dihydrochloride (Pramipexole Di-Hcl 0.125 Mg Tablet) 0.125 mg PO BEDTIME YOSHI Last Admin: 01/09/25 20:53 Dose: 0.125 mg Quetiapine Fumarate (Quetiapine Fumarate 50 Mg Tablet) 50 mg PO DAILY PRN PRN Reason: Anxiety Last Admin: 01/09/25 19:32 Dose: 50 mg Quetiapine Fumarate (Quetiapine Fumarate 300 Mg Tablet) 300 mg PO BEDTIME YOSHI Last Admin: 01/09/25 20:53 Dose: 300 mg Quetiapine Fumarate (Quetiapine Fumarate 200 Mg Tablet) 200 mg PO BEDTIME YOSHI Last Admin: 01/09/25 20:53 Dose: 200 mg Sertraline HCl (Sertraline Hcl 50 Mg Tablet) 150 mg PO DAILY YOSHI Last Admin: 01/10/25 08:21 Dose: 150 mg Trazodone HCl (Trazodone Hcl 50 Mg Tablet) 50 mg PO BEDTIME MRX1 PRN PRN Reason: Insomnia Last Admin: 01/09/25 20:53 Dose: 50 mg Allergies Allergies Allergy/AdvReac Type Severity Reaction Status Date / Time No Known Allergies Allergy Verified 01/04/25 05:57 Assessment & Plan Assessment & Plan (1) Schizoaffective disorder, depressive type: Status: Acute Code(s): F25.1 - Schizoaffective disorder, depressive type Plan Pt is a 24 year old male with history of schizoaffective disorder depressed type, [facility] admission, hyperlipidemia who presents for suicidal ideation in the face of chronic psychotic symptoms. Patient reports that he has been depressed; about 2 months ago he was discharged from [place] after 2 weeks stay and although depressed, up until last week, he was just Chillin... And remaining on medications (his sister reports been off for few days; patient acknowledges sometimes he stops them for a little while). Patient said that his depression worsened and he started having suicidal thoughts to hang himself. Patient says they are just thoughts, not voices, but he feels pressured to do it... He really does not want to but when it gets too much [he] calls the ambulance... Patient said that he was at the train tracks and had the thought to go in front of the train but I did not do it and called the ambulance... Patient also complains of the chronic, either delusional or intrusive, thought that when he is eating food, he is eating a human being; he says he knows it is not true, it is just my mind playing tricks.. But the thought/feeling brings with it paranoid ideations that people are after him because of his cannibalism so he gets scared. Patient denies any current AH but says he had in the past; says no SI right now... Smoked cannabis but denies other drug or alcohol abuse; denies history of manic type symptoms or behaviors; seems to endorse trauma history but is vague. Formulation/clinical reasoning: Patient cooperative. Presents with depression and is internally preoccupied though denies AH. Patient reports intrusive thoughts to hurt himself and that he is eating human beings when consuming food; he denies that these are voices and it is not clear if this is an intrusive thought or paranoid ideation. Patient on Invega Sustenna 234 mg which he received on 12/15; also on Seroquel 400 mg q.h.s.. Patient on Zoloft 100 mg. Because of his depression and what sounds like possibly OCD-like symptoms, will increase patient's Zoloft to 150 mg with which he agrees. Patient has ongoing paranoid ideations it is not clear if Seroquel is ineffective, too low a dose or if he has has not been taking it. Will reach out for collateral Hospital course: Patient Zoloft increased and patient's depression and SI fully resolved. He remained in good behavioral and impulse control and affect became noticeably brighter. Patient remained without AH. He still had intrusive thoughts/delusional idea of eating human beings however this subsided; patient agreed to increase Seroquel dose to see if that could help; patient has chronic restless leg and started on pramipexole. Patient felt overall much better and felt ready to return home. As mentioned he remained in good behavioral and impulse control was eating and sleeping well and appropriate with peers and staff. Patient has considerable outpatient support already established and he returns home to a supportive family with whom he lives. Patient is not in imminent risk for harm to self or others and appropriate to return to the community for treatment. His request for discharge honored. Medication Start pramipexole for restless leg qhs Increased Zoloft to 150 mg to address OCD like symptoms and depression InCRease to Seroquel 500 mg q.h.s. Continued Seroquel 50 mg daily p.r.n. Continued Invega Sustenna 234 mg last dose 12/15/24 Patient educated on: diagnosis and medication risk/benefits Informed Consent: understands Reason for continued inpatient stay Substantial Risk for: stable for discharge Time Spent With Patient Time: Total time managing care of this patient today ____ minutes.
--- NOTE | 2025-01-10 11:36 | P.DS_ITS ---
DS: Providers Provider Date of Service: 01/10/25 Date of admission: 01/04/25 05:10 Date of discharge: 01/10/25 Primary care physician: Unknown Physician Attending physician on admission: Julio Engle Consults: 01/04/25 05:57 Consult to Hospitalist Routine Comment: Consulting Provider: [facility] Reason For Exam: medical H&P Attending physician on discharge: Julio Engle DS: Diagnosis Discharge Diagnosis (1) Schizoaffective disorder, depressive type: Status: Acute DS: Medications Discharge Medications Home Medications: Home Medications ?Medication ?Instructions ?Recorded ?Confirmed simvastatin 20 mg tablet 20 mg PO BEDTIME 01/04/25 01/04/25 Previous Rx's ?Medication ?Instructions ?Recorded benztropine 1 mg tablet 1 mg PO BID 30 days #60 tabs 01/10/25 melatonin 3 mg tablet 3 mg PO BEDTIME PRN Sleep 30 days 01/10/25 #30 tabs nicotine (polacrilex) 4 mg gum 4 mg buccal Q2H PRN nicotine 01/10/25 cravings 30 days #100 ea paliperidone palmitate 234 mg/1.5 234 mg (1.5 mL) IM Q28D 28 days 01/10/25 mL intramuscular syringe (Invega #1.5 mL Sustenna) pramipexole 0.125 mg tablet 0.125 mg PO BEDTIME 30 days #30 01/10/25 tabs quetiapine 100 mg tablet 100 mg PO BEDTIME 30 days #30 tabs 01/10/25 quetiapine 400 mg tablet 400 mg PO BEDTIME 30 days #30 tabs 01/10/25 quetiapine 50 mg tablet (Seroquel) 50 mg PO DAILY PRN Anxiety 30 days 01/10/25 #60 tabs sertraline 100 mg tablet 150 mg (1.5 x 100 mg) PO DAILY 30 01/10/25 days #45 tabs Mental Status Exam Mental Status Exam Narrative: Pt is alert and oriented; behavior is cooperative, friendly and calm, social in milue; patient is not in distress; dressed in casual attire, unkempt, obese; mood is described as good and affect congruent, calm, brighter; eye contact appropriate; Speech is normal rate, volume, prosody; no longer with some thought blocking;no psychomotor retardation present; thought process goal oriented and organized; Thought content is on tx, discharge; also on paranoid ideations but more able to dismiss; No SI; no HI. Currently Denies AVH and does note appear internally preoccupied. Patients insight and judgment impaired but much improved, adequate and at baseline. Data Data Completed and Pending Completed studies during hospitalization [Text1]: 01/05/25 08:26 Sodium 139 Potassium 4.2 Chloride 103 Carbon Dioxide 24 Anion Gap 16 BUN 13 Creatinine 0.88 Estim Creat Clear Calc 163.9 Estimated GFR > 60 Random Glucose 109 Estimat Average Glucose 123 Hemoglobin A1c % 5.9 Calcium 10.0 Total Bilirubin 0.4 AST 23 ALT 47 H Alkaline Phosphatase 99 Total Protein 7.6 Albumin 4.7 Triglycerides 181 H Cholesterol 152 LDL Cholesterol, Calc 79 HDL Cholesterol 37 L Vitamin B12 418 Folate 11.3 TSH 1.70 DS: Summary Hospital Course Hospital Course: Pt is a 24 year old male with history of schizoaffective disorder depressed type, [facility] admission, hyperlipidemia who presents for suicidal ideation in the face of chronic psychotic symptoms. Patient reports that he has been depressed; about 2 months ago he was discharged from [place] after 2 weeks stay and although depressed, up until last week, he was just Chillin... And remaining on medications (his sister reports been off for few days; patient acknowledges sometimes he stops them for a little while). Patient said that his depression worsened and he started having suicidal thoughts to hang himself. Patient says they are just thoughts, not voices, but he feels pressured to do it... He really does not want to but when it gets too much [he] calls the ambulance... Patient said that he was at the train tracks and had the thought to go in front of the train but I did not do it and called the ambulance... Patient also complains of the chronic, either delusional or intrusive, thought that when he is eating food, he is eating a human being; he says he knows it is not true, it is just my mind playing tricks.. But the thought/feeling brings with it paranoid ideations that people are after him because of his cannibalism so he gets scared. Patient denies any current AH but says he had in the past; says no SI right now... Smoked cannabis but denies other drug or alcohol abuse; denies history of manic type symptoms or behaviors; seems to endorse trauma history but is vague. Formulation/clinical reasoning: Patient cooperative. Presents with depression and is internally preoccupied though denies AH. Patient reports intrusive thoughts to hurt himself and that he is eating human beings when consuming food; he denies that these are voices and it is not clear if this is an intrusive thought or paranoid ideation. Patient on Invega Sustenna 234 mg which he received on 12/15; also on Seroquel 400 mg q.h.s.. Patient on Zoloft 100 mg. Because of his depression and what sounds like possibly OCD-like symptoms, will increase patient's Zoloft to 150 mg with which he agrees. Patient has ongoing paranoid ideations it is not clear if Seroquel is ineffective, too low a dose or if he has has not been taking it. Will reach out for collateral Hospital course: Patient Zoloft increased and patient's depression and SI fully resolved. He remained in good behavioral and impulse control and affect became noticeably brighter. Patient remained without AH. He still had intrusive thoughts/delusional idea of eating human beings however this subsided; patient agreed to increase Seroquel dose to see if that could help; patient has chronic restless leg and started on pramipexole. Patient felt overall much better and felt ready to return home. As mentioned he remained in good behavioral and impulse control was eating and sleeping well and appropriate with peers and staff. Patient has considerable outpatient support already established and he returns home to a supportive family with whom he lives. Patient is not in imminent risk for harm to self or others and appropriate to return to the community for treatment. His request for discharge honored. Medication Start pramipexole for restless leg qhs Increased Zoloft to 150 mg to address OCD like symptoms and depression InCRease to Seroquel 500 mg q.h.s. Continued Seroquel 50 mg daily p.r.n. Continued Invega Sustenna 234 mg last dose 12/15/24 Time spent discussing smoking cessation with patient: 3 to 10 minutes Status at Discharge Functional status at discharge: independent ambulation Overall status at discharge: patient is back to baseline Time Spent with Patient Time attestation: Total time managing care of this patient today _40___ minutes. Time spent: Greater than 30 minutes Specific discharge activities: Met with patient; discussed with team; charting; prescriptions Discharge Plan Discharge Anticipated Discharge Date/Time: 01/10/25 11:45 Patient Disposition: Home, Self-Care Discharge Diagnosis: Schizoaffective disorder, depressed type Referrals: [facility] w Dr. Alvarado [Other] - 01/24/25 10:00 am () [facility] [Other] - 01/11/25 ([facility] will follow up with you in the community. ) [facility] [Other] - 01/12/25 (The nurse will come to the home to administer your shot. ) [facility] Doretha Arrieta APRN [Other] - 1 Day Discharge Medications: New nicotine (polacrilex) 4 mg gum 4 mg buccal Q2H PRN (Reason: nicotine cravings) 30 Days Qty: 100 0RF pramipexole 0.125 mg Tablet 0.125 mg PO BEDTIME 30 Days Qty: 30 0RF Continued simvastatin 20 mg Tablet 20 mg PO BEDTIME Invega Sustenna 234 mg/1.5 mL Syringe 234 mg IM Q28D 28 Days Qty: 1.5 0RF Rx Instructions: due on 01/12/25 melatonin 3 mg Tablet 3 mg PO BEDTIME PRN (Reason: Sleep) 30 Days Qty: 30 0RF benztropine 1 mg Tablet 1 mg PO BID 30 Days Qty: 60 0RF quetiapine [Seroquel] 50 mg Tablet 50 mg PO DAILY PRN (Reason: Anxiety) 30 Days Qty: 60 0RF quetiapine 400 mg tablet 400 mg PO BEDTIME 30 Days Qty: 30 0RF Rx Instructions: take with 100mg tab Changed sertraline 100 mg Tablet 150 mg PO DAILY 30 Days Qty: 45 0RF quetiapine 100 mg tablet 100 mg PO BEDTIME 30 Days Qty: 30 0RF Rx Instructions: take with 400mg tab Discontinued propranolol 20 mg Tablet 20 mg PO TID Rx Instructions: for 14 days mirtazapine 7.5 mg Tablet 7.5 mg PO BEDTIME Discharge Orders: Discharge Order (Routine); Ordered 01/10/25 Ordered By: Julio Engle Diet: Regular diet Activity on Discharge: As tolerated Stand Alone Forms: Patient Portal Discharge page, Community Support Print Language: Choose Not To Answer Care Plan Goals: Maintain mood and safe behaviors Take medications as prescribed Practice coping skills Continue with outpatient providers and reach out to them as needed Health Concerns: Mood stability and behaviors Hyperlipidemia History of hypertension Plan of Treatment: Follow up with your PCP, psychiatric provider and other outpatient providers regarding above concerns Take medications as prescribed Assessment: Risk assessment at time of discharge:? Patient was interviewed prior to discharge and found to be fully oriented and without any SI or HI. Patient has improved insight and judgment and wants to continue treatment. Patient is not in imminent risk of harm to self or others and has a safety plan that includes presenting to the closest ER or calling 911 if feeling unsafe.? Patient has been observed closely by nursing and unit staff throughout admission; patient has not engaged in any behaviors that suggest dangerousness to self or others and has demonstrated appropriate behaviors and impulse control
== END 2025-01-10 14:30 | disposition home or self-care (01) | DRG 750 ==
PROVIDERS: Social Worker; Admitting Provider Psychiatry & Neurology Psychiatry; Visit Provider Psychiatry & Neurology Psychiatry
DX: F25.1 Schizoaffective disorder, depressive type (principal); E78.5 Hyperlipidemia, unspecified; I10 Essential (primary) hypertension; F17.210 Nicotine dependence, cigarettes, uncomplicated; Z71.6 Tobacco abuse counseling; Z79.899 Other long term (current) drug therapy
CPT/HCPCS: 36415; 80053; 80061; 82607; 82746; 83036; 84443

== ENCOUNTER → 2025-01-04 05:10 | Outpatient (BNV) | payer SELFPAY | PROVIDERS: Admitting Provider Psychiatry & Neurology Psychiatry; Visit Provider Psychiatry & Neurology Psychiatry | DX: F25.1 Schizoaffective disorder, depressive type (principal) | CPT/HCPCS: 90792 ==

== ENCOUNTER → 2025-01-04 05:10 | Outpatient (BNV) | payer SELFPAY | PROVIDERS: Admitting Provider Psychiatry & Neurology Psychiatry; Visit Provider Student in an Organized Health Care Education/Training Program | DX: Z00.8 Encounter for other general examination (principal) | CPT/HCPCS: 99223 ==